=== PATIENT | female | born 1975 | race African-American/Black ===

== ENCOUNTER 2017-09-10 12:27 | Emergency (ER) | payer OTHER, MEDICAID ==
[~2017-09-10] VITALS: Ht 157.5 cm; Wt 59.9 kg
[~2017-09-10 12:27] MED LIST: ADULT SUPPOSIT1 EACH; COLACE 100 MG100 MG PO; IBUPROFEN 800800 M1; METHOTREXATE 22.5 MG; MIRALAX255 GM; NORCO 5-325 TA1 EACH PO
[2017-09-10 14:18] VITALS: BP 153/93
== END 2017-09-10 14:19 ==
LOC: M.ERS 12:27
DX: S09.8XXA Other specified injuries of head, initial encounter (principal); W08.XXXA Fall from other furniture, initial encounter; Y93.89 Activity, other specified; Y92.89 Other specified places as the place of occurrence of the external cause; Y99.8 Other external cause status